=== PATIENT | male | born 1965 | race Caucasian/White ===

== ENCOUNTER 2017-09-30 19:55 | Emergency (ER) | payer MEDICAID ==
[~2017-09-30] VITALS: Ht 172.7 cm; Wt 83.9 kg
[~2017-09-30 19:55] MED LIST: ASPI-1169 PO; ATOR40TA PO; CLOP75TA15 PO; LISI-607 PO; METF10004 PO; SITA50TA PO
[2017-09-30 20:00] VITALS: BP 157/99
--- NOTE | 2017-09-30 22:08 | NUR ---
Patient does not wish to proceed with medical care recommended by Dr. Geraldine Clancy ). Patient given information related to possible complications, up to and including , which could occur as a result of leaving the hospital at this time. Patient verbalizes understanding of risks involved due to leaving against medical advice. Patient has signed AMA form.
== END 2017-09-30 22:09 | disposition left against medical advice (07) ==
LOC: ER 19:58
DX: L03.032 Cellulitis of left toe (principal); M86.8X7 Other osteomyelitis, ankle and foot; I10 Essential (primary) hypertension; E11.9 Type 2 diabetes mellitus without complications; F17.200 Nicotine dependence, unspecified, uncomplicated; Z60.2 Problems related to living alone; Z79.82 Long term (current) use of aspirin; Z79.84 Long term (current) use of oral hypoglycemic drugs; Z86.73 Personal history of transient ischemic attack (TIA), and cerebral infarction without residual deficits
CPT/HCPCS: 99283; 99406; A4606; Z7610

== ENCOUNTER 2018-06-23 09:09 | Emergency (ER) | payer MEDICAID ==
[~2018-06-23] VITALS: Ht 170.2 cm; Wt 78.5 kg
[~2018-06-23 09:09] MED LIST changes: +METF-442 PO; -METF10004 PO
--- NOTE | 2018-06-23 09:17 | NUR ---
PT TO ER BED 10. BIB BY SELF. AAOX4. AMBULATORY WITHOUT ASSISTANCE. NO ACUTE DISTRESS. BREATHING EVEN AND UNLAABORED. CAME IN WITH C/O NUMBER ON BOTH FEET AND BOTH HAND. DENIES OF ANY CHEST PAIN. AWAITING MD VAL[place].
[2018-06-23 09:40] LABS: BASOPHILS % (AUTO) 0.3 % (0.0-2.0); EOSINOPHILS % (AUTO) 0.4 % (0.0-6.0); HEMATOCRIT 47 % (39-51); HEMOGLOBIN 16.3 g/dL (13.5-17.5); LYMPHOCYTES # (AUTO) 1.5 /CMM (0.8-4.8); LYMPHOCYTES % (AUTO) 14.6 % (20.0-44.0); MEAN CORPUSCULAR HGB CONC 35 g/dl (31.0-36.0); MEAN CORPUSCULAR VOLUME 84 fL (80-96); MONOCYTES # (AUTO) 0.6 /CMM (0.1-1.30); MONOCYTES % (AUTO) 5.3 % (2.0-12.0); NEUTROPHILS # (AUTO) 8.3 /CMM (1.8-8.9); NEUTROPHILS % (AUTO) 79.4 % (43.0-81.0); PLATELET COUNT (AUTO) 201 /CMM (150-450); RED BLOOD CELL COUNT(AUTO) 5.62 MIL/uL (4.5-6.0); WHITE BLOOD COUNT (AUTO) 10.5 K/uL (4.3-11.0)
[2018-06-23 09:48] LABS: CREATININE 0.9 mg/dL (0.6-1.3); MAGNESIUM 1.8 mg/dL (1.8-2.4); POTASSIUM 3.3 mmol/L (3.5-5.1)
[2018-06-23] MEDS ORDERED: ASPIRIN 81 MG TAB.CHEW PO ONE (11:00)
[2018-06-23] MEDS ORDERED: POTASSIUM CHLORIDE 20 MEQ TAB.PRT.SR PO ONE ×2 (11:04→11:30)
[2018-06-23] MEDS ORDERED: ASPIRIN 81 MG TAB.CHEW ONE (11:04)
[2018-06-23] MEDS ORDERED: AMLODIPINE BESYLATE 5 MG TABLET ONE (11:12)
[2018-06-23] MEDS ORDERED: AMLODIPINE BESYLATE 5 MG TABLET PO ONE (11:30)
[2018-06-23 11:46] VITALS: BP 184/114
--- NOTE | 2018-06-23 11:47 | NUR ---
Patient discharged to home in stable condition. Written and verbal after care instructions given. Patient verbalizes understanding of instruction.
== END 2018-06-23 11:47 | disposition home or self-care (01) ==
LOC: ER 09:10
DX: R20.2 Paresthesia of skin (principal); E87.6 Hypokalemia; E11.9 Type 2 diabetes mellitus without complications; I10 Essential (primary) hypertension; F17.200 Nicotine dependence, unspecified, uncomplicated; Z60.2 Problems related to living alone; Z95.5 Presence of coronary angioplasty implant and graft; Z79.82 Long term (current) use of aspirin
CPT/HCPCS: 36415; 70450-TC; 80048-TC; 83735-TC; 85025-TC

== ENCOUNTER 2018-07-17 15:20 | Emergency (ER) | payer MEDICAID ==
[~2018-07-17] VITALS: Ht 172.7 cm; Wt 79.4 kg
[2018-07-17] MEDS ORDERED: HYDROCHLOROTHIAZIDE 25 MG TABLET ONE (16:09)
[2018-07-17 16:16] VITALS: BP 191/104
[2018-07-17] MEDS: HYDROCHLOROTHIAZIDE 25 MG TABLET PO ONE (16:16)
== END 2018-07-17 16:20 | disposition home or self-care (01) ==
LOC: ER 15:28
DX: I10 Essential (primary) hypertension (principal); E11.9 Type 2 diabetes mellitus without complications; F17.200 Nicotine dependence, unspecified, uncomplicated; Z60.2 Problems related to living alone; Z86.73 Personal history of transient ischemic attack (TIA), and cerebral infarction without residual deficits; Z79.82 Long term (current) use of aspirin